=== PATIENT | female | born 1945 | race Caucasian/White ===

== ENCOUNTER 2016-11-24 07:55 | Day surgery (SDC) | payer OTHER ==
[~2016-11-24 07:55] MED LIST: AMLO2.5T2 PO; ASPI-496; ASPI-515 PO; ASPI-650 PO; ASPI-770 PO; ATOR10TA; ATOR20TA9 PO; CHOL2000 PO; CLOP75TA PO; CLOP75TA22 PO; HYDR12.58 PO; LISI5TAB7 PO; METF500T4 PO; PARO10TA24 PO; POTA20TA14 PO; TRIA1TAB2 PO
[2016-11-24] MEDS ORDERED: LIDOCAINE 2%, 20ML ONE (08:33)
== END 2016-11-24 09:44 | disposition home or self-care (01) ==
LOC: CACL 07:55
PROVIDERS: ATTEND Internal Medicine Cardiovascular Disease
DX: Z45.09 Encounter for adjustment and management of other cardiac device (principal); I12.9 Hypertensive chronic kidney disease with stage 1 through stage 4 chronic kidney disease, or unspecified chronic kidney disease; E11.22 Type 2 diabetes mellitus with diabetic chronic kidney disease; N18.2 Chronic kidney disease, stage 2 (mild); E78.5 Hyperlipidemia, unspecified; F32.9 Major depressive disorder, single episode, unspecified; I48.91 Unspecified atrial fibrillation; E66.9 Obesity, unspecified; Z68.30 Body mass index [BMI] 30.0-30.9, adult; Z87.39 Personal history of other diseases of the musculoskeletal system and connective tissue; Z86.73 Personal history of transient ischemic attack (TIA), and cerebral infarction without residual deficits
CPT/HCPCS: 33284; J3490

== ENCOUNTER → 2018-06-06 | Outpatient (CLI) | payer OTHER ==
[~2018-06-06] MED LIST changes: -ASPI-770 PO; +ASPI81TA59 PO; +ATOR20TA37 PO; -ATOR20TA9 PO; -CLOP75TA22 PO; +CLOP75TA52 PO; +GADOBUTROL 10 MMOL/10 ML VIAL ONE; -HYDR12.58 PO; +HYDROCHLOROTH12.5 MG PO; +METF500T17 PO; -METF500T4 PO; -PARO10TA24 PO; +PARO10TA56 PO
== END | disposition home or self-care (01) ==
LOC: CFH 13:21
PROVIDERS: ATTEND Family Medicine
DX: K86.2 Cyst of pancreas (principal); D37.8 Neoplasm of uncertain behavior of other specified digestive organs
CPT/HCPCS: 74183; A9585

== ENCOUNTER 2019-03-15 12:55 | Outpatient (CLI) | payer MEDICARE ==
[~2019-03-15 12:55] MED LIST changes: -GADOBUTROL 10 MMOL/10 ML VIAL ONE
[2019-03-15] MEDS ORDERED: GADOTERATE 10 MMOL/20 ML VIAL ONE (14:38)
== END 2019-03-15 23:59 | disposition home or self-care (01) ==
LOC: CFH 12:55
PROVIDERS: ATTEND Family Medicine
DX: Z12.31 Encounter for screening mammogram for malignant neoplasm of breast (principal); K86.2 Cyst of pancreas; N64.89 Other specified disorders of breast; E11.9 Type 2 diabetes mellitus without complications
CPT/HCPCS: 74183; 77067; A9575

== ENCOUNTER 2019-12-12 14:15 | Emergency (ER) | payer MEDICARE ==
[~2019-12-12] VITALS: Ht 157.5 cm; Wt 80.0 kg
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
--- NOTE | 2019-12-12 14:50 | NUR ---
PT PROVIDED W/ ICE PACK AND EXTREMITY ELEVATED.
--- NOTE | 2019-12-12 15:03 | NUR ---
NICHOLE HERNANDEZ [phone] WILL PROFESSIONAL HOUSING CONSULTANT PT WHEN READY FOR DC.
--- NOTE | 2019-12-12 15:44 | NUR ---
RAD IN ROOM.
[2019-12-12] MEDS ORDERED: MORPHINE SULFATE 4 MG/ML, 1ML ONE (16:07)
[2019-12-12] MEDS ORDERED: ONDANSETRON 2MG/ML, 2ML ONE (16:07)
[2019-12-12 16:17] VITALS: BP 140/80
--- NOTE | 2019-12-12 16:18 | NUR ---
VERBAL ORDER FROM JOHNATHON MICHAEL FOR 4MG ZOFRAN AND 4MG MORPHINE. PIV STARTED AND PT MEDICATED BY MARKETING SERVICES VICE PRESIDENT STUDENT LIOR UNDER SUPERVISION OF THIS RN.
--- NOTE | 2019-12-12 16:19 | NUR ---
PT PLACED ON 2L NC FOR SAFETY.
[2019-12-12] MEDS ORDERED: ONDANSETRON 2MG/ML, 2ML IVPush ONE (17:00)
[2019-12-12] MEDS ORDERED: SODIUM CHLORIDE FLUSH 10ML SYR IVF ONE (17:00)
[2019-12-12] MEDS ORDERED: MORPHINE SULFATE 4 MG/ML, 1ML IVPush PRN (17:00)
== END 2019-12-12 18:25 | disposition home or self-care (01) ==
LOC: ED 14:40
DX: S82.432A Displaced oblique fracture of shaft of left fibula, initial encounter for closed fracture (principal); I10 Essential (primary) hypertension; E11.9 Type 2 diabetes mellitus without complications; Z90.710 Acquired absence of both cervix and uterus; Z90.89 Acquired absence of other organs; Z86.73 Personal history of transient ischemic attack (TIA), and cerebral infarction without residual deficits; W01.0XXA Fall on same level from slipping, tripping and stumbling without subsequent striking against object, initial encounter; Y93.89 Activity, other specified; Y92.009 Unspecified place in unspecified non-institutional (private) residence as the place of occurrence of the external cause; Y99.8 Other external cause status
CPT/HCPCS: 29515; 73590; 73610; 96374; 96375; 99284; J2270; J2405